=== PATIENT | female | born 1995 | race Caucasian/White ===

== ENCOUNTER → 2020-06-27 15:57 | Outpatient (CLI) | payer BC, MEDICAID, OTHER, SELFPAY ==
--- NOTE | 2020-06-27 16:02 | DI.US.S_ITS ---
PROCEDURE: US OB <= 14 WEEKS FETUS INDICATIONS: RULE OUT ECTOPIC. HISTORY OF ECTOPIC 12/2019. OUTSIDE/PRIOR DATING DATA: Last menstrual period (LMP): Unknown. LMP-based estimated date of delivery (LILIA): Unknown. First dating scan (date and location): 06/27/2020. Estimated date of delivery (LILIA) from first dating scan: 02/19/2021. TECHNIQUE: Real-time scanning was performed of the fetus and maternal pelvic organs, with image documentation. Endovaginal scanning was also performed to better visualize the fetus and maternal ovaries. COMPARISON: None. FINDINGS: Embryo: [place]-rump length measuring 0.4 cm corresponding to 6 weeks 1 day gestational age. A yolk sac is seen measuring at 3 mm. cardiac motion. heart rate 116 BPM. Small cyst inferior to the early gestational sac measuring at 0.4 cm. Measurement variability in dating: +/- 4 weeks by LMP, +/- 7 days by mean sac diameter (use before 6 weeks gestation if crown-rump length not able to be measured), +/- 5 days by crown-rump length (up to 8 weeks 6 days gestation), +/- 7 days by crown-rump length (up to 13 weeks 6 days gestation). Maternal organs: Left ovarian corpus luteum measuring 2.5 cm. Right pelvic veins are prominent. Limited images through the kidneys demonstrate no hydronephrosis. IMPRESSION: 1. Becerra living intrauterine at 6 weeks 1 day based on today's crown rump length. heart rate 116 BPM. 2. Tiny cyst in the lower uterine segment endometrium. This could represent a focus of perigestational hemorrhage. Recommend follow-up anatomic survey OB ultrasound at 20 weeks. Dictated by: Paolo Amado M.D. on 06/27/2020 at 16:01 Approved by: Paolo Amado M.D. on 06/27/2020 at 16:06
== END ==
PROVIDERS: PCP Family Medicine; Referring Provider Family Medicine; Visit Provider Family Medicine
DX: Z36.87 Encounter for antenatal screening for uncertain dates (principal); Z3A.01 Less than 8 weeks gestation of pregnancy
CPT/HCPCS: 76801; 76817